=== PATIENT | male | born 1960 | race Caucasian/White ===

== ENCOUNTER 2017-05-24 11:28 | Emergency (ER) | payer SELFPAY ==
--- NOTE | 2017-05-24 11:54 | ER Document Report ---
ED General - General Chief Complaint: Hemorrhoids Stated Complaint: URINARY PROBLEMS Time Seen by Provider: 05/24/17 11:49 Mode of Arrival: Ambulatory Information source: Patient Notes: Although the stated complaint is urinary problems patient denies any urinary problems to me. Patient states that he has some pain around his rectal area. He states he felt it may have had a hemorrhoid but now his girlfriend has told him that she sees some sores in there. Patient denies any problems with bowel movements no fevers or abdominal pain. The pain is intermittent. It is moderate. It is an aching sensation and a sharp pain. It does not radiate. It is worse when touched and better when left alone. TRAVEL OUTSIDE OF THE [place] IN LAST 30 DAYS: No - Related Data Allergies/Adverse Reactions: No Known Allergies Allergy (Unverified 05/24/17 11:40) Past Medical History - General Information source: Patient - Social History Smoking Status: Never Smoker Drug Abuse: None Lives with: Spouse/Significant other Family History: Reviewed & Not Pertinent Patient has suicidal ideation: No Patient has homicidal ideation: No Renal/ Medical History: Denies: Hx Peritoneal Dialysis Review of Systems - Review of Systems Constitutional: denies: Chills, Fever Cardiovascular: denies: Chest pain, Palpitations Respiratory: denies: Cough, Short of breath Gastrointestinal: denies: Abdomen distended, Abdominal pain, Diarrhea, Vomiting , Blood streaked bowels Physical Exam - Vital signs Vitals: Temp Pulse BP Pulse Ox 97.4 F 78 147/101 H 97 05/24/17 11:38 05/24/17 11:38 05/24/17 11:38 05/24/17 11:38 Interpretation: Hypertensive - General General appearance: Appears well, Alert - HEENT Head: Normocephalic, Atraumatic Eyes: Normal Pupils: PERRL - Respiratory Respiratory status: No respiratory distress Chest status: Nontender Breath sounds: Normal Chest palpation: Normal - Cardiovascular Rhythm: Regular Heart sounds: Normal auscultation Murmur: No - Abdominal Inspection: Normal Distension: No distension Bowel sounds: Normal Tenderness: Nontender Organomegaly: No organomegaly - Rectal Hemorrhoids: Internal - Patient has a mildly tender very small mass just inside the rectum at approximately 7:00. This is possibly consistent with a very small internal hemorrhoid. No other significant abnormalities are appreciated on exam. Prostate: Normal - Psychological Associated symptoms: Normal affect, Normal mood - Skin Skin Temperature: Warm Skin Moisture: Dry Skin Color: Normal Course - Vital Signs Vital signs: Temp Pulse Resp BP Pulse Ox 97.4 F 78 147/101 H 97 05/24/17 11:38 05/24/17 11:38 05/24/17 11:38 05/24/17 11:38 Discharge - Discharge Clinical Impression: Internal hemorrhoid, Uncontrolled hypertension Condition: Stable Disposition: HOME, SELF-CARE Instructions: Hemorrhoids ([facility]), High Blood Pressure ([facility]) Additional Instructions: Please follow-up with your primary care provider within 1 week to have your blood pressure reevaluated. Also please call the surgeon, Dr. Ash, as soon as possible for follow up. Prescriptions: Amlodipine Besylate [Norvasc 2.5 mg Tablet] 2.5 mg PO DAILY #30 tablet Pramoxine HCl/Mineral Oil/Znox [Anusol Ointment] 24 gm RC BID 7 Days oint..gm. Referrals: GO TORRES MD [ACTIVE STAFF] - Follow up as needed
[2017-05-24 11:57] VITALS: BP 147/103
== END 2017-05-24 12:00 | disposition home or self-care (01) ==
LOC: ER 11:28
DX: K64.8 Other hemorrhoids (principal); I10 Essential (primary) hypertension
CPT/HCPCS: 99282